=== PATIENT | male | born 1975 | race Caucasian/White ===

== ENCOUNTER 2022-10-11 19:09 | Emergency (ER) | payer SELFPAY ==
[2022-10-11 20:19] VITALS: BP 129/88; PULSE 78; RESP 18; TEMP 37; O2SAT 98; BMI 23.6
[2022-10-11 21:21] VITALS: BP 136/88; PULSE 77; RESP 16; TEMP 36.9; O2SAT 100
--- NOTE | 2022-10-11 21:32 | ED_ITS ---
HPI - Allergic Reaction General: Chief complaint: Allergic Reaction Stated complaint: Aleric Reaction to Antibiatics Time Seen by Provider: 10/11/22 20:51 History of Present Illness: HPI narrative: 47-year-old male patient comes in today with complaints of difficulty swallowing. Patient was diagnosed with a dental infection and dental abscess and was started on amoxicillin. Patient taken 1 dose of amoxicillin this morning this afternoon felt like he had more problems with swallowing. Patient was then brought to the emergency room. Patient was switched from amoxicillin to clindamycin but has not yet to start the clindamycin. Patient reports no chronic medical problems or routine medications. Patient does have very poor dentition. Review of Systems Const: Denies: fever(s) ENMT: Reports: throat pain and dental pain Card: Denies: chest pain Resp: Denies: dyspnea Musc: Reports: neck pain Skin/Breast: Denies: rash Physical Exam Const: COMMON NORMALS: alert HENMT: COMMON NORMALS: Normal external nose present FACE & SINUS: other (Left lower jaw swelling with surrounding redness and induration of the neck) NOSE: Normal external nose present TEETH & GINGIVA: Yes poor dentition and Yes other Neck/C-Spine: COMMON NORMALS: full ROM and no meningeal signs Resp: COMMON NORMALS: normal respiratory effort Cardio: COMMON NORMALS: regular rate RATE: regular rate GI: COMMON NORMALS: Soft to palpation PALPATION: Yes Soft to palpation Extremity: COMMON NORMALS: normal to inspection Neuro: SENSORIUM/ORIENTATION: Yes alert MENINGEAL SIGNS: Yes no meningeal signs Skin: RASHES: rashes noted (Redness and induration to the left jaw and neck) Course Vital Signs: Vital signs: Vital Signs Temperature 98.4 F 10/11/22 21:21 Pulse Rate 77 10/11/22 21:21 Respiratory Rate 18 10/11/22 22:00 Blood Pressure 136/88 10/11/22 21:21 Pulse Oximetry 100 10/11/22 21:21 Oxygen Delivery Me thod 10/11/22 21:21 MDM - Allergic Reaction Medical Decision Making Patient was brought in by law enforcement from the shelter for concerns of difficulty swallowing and pain in the neck. Patient recently been started on amoxicillin and concerned the patient may be having a reaction to the amoxicillin. On exam patient has warmth and swelling to the left lower jaw with apparent dental abscess. Patient does have some redness extending down into the left anterior neck with some induration. Vital signs are normal. Patient is managing secretions well. Differential diagnosis includes but not limited to Jorge's angina, cellulitis, dental abscess, retropharyngeal abscess. CT of the neck noted abscess to the apparent dentition. No signs of retropharyngeal abscess or other significant abnormalities. Patient was treated with 10 mg of dexamethasone IV, and 600 mg of clindamycin. Patient was recommended to continue with antibiotics clindamycin as directed per PCP. Patient was recommended to follow-up with dentist for definitive care. Patient reported understanding agreed to plan. Lab Data 10/11/22 22:04 10/11/22 22:[address] 10/11/22 21:38 IMPRESSION: Subcutaneous soft tissue abscess abutting the skin surface suspected in the left face overlying the mandible measuring 3.9 cm maximum size. Adjacent changes of cellulitis are also present. Multifocal dental disease is seen. Suspect dental origin. Recommend dental consultation. Laboratory Results WBC 10.2 10^3/uL (4.0-10.0) H 10/11/22 22: RBC 4.19 10^6/uL (4.1-5.3) 10/11/22 22:04 Hgb 12.7 g/dL (11.7-16.6) 10/11/22 22:04 Hct 36.3 % (42.0-52.0) L 10/11/22 22:04 MCV 86.6 fl (80-94) 10/11/22 22: MCH 30.3 pg (28.0-34.0) 10/11/22 22: MCHC 35.0 g/dL (30.0-36.0) 10/11/22 22:04 RDW 11.8 % (12.1-15.1) L 10/11/22 22:04 Plt Count 344 10^3/cmm (130-400) 10/11/22 22:04 MPV 9.2 fL (7.4-10.4) 10/11/22 22:04 Neut % (Auto) 68.3 % 10/11/22 22: Lymph % (Auto) 21.4 % 10/11/22 22:04 [place] % (Auto) 9.5 % 10/11/22 22:04 Eos % (Auto) 0.2 % 10/11/22 22:04 Baso % (Auto) 0.3 % 10/11/22 22:04 Neut # (Auto) 6.94 10^3/uL (1.8-7.7) 10/11/22 22:04 Lymph # (Auto) 2.2 10^3/uL (0.8-4.8) 10/11/22 22:04 [place] # (Auto) 1.0 10^3/uL (0.2-0.9) H 10/11/22 22:04 Eos # (Auto) 0.0 10^3/uL (0.0-0.8) 10/11/22 22:04 Baso # (Auto) 0.0 10^3/uL (0.0-0.1) 10/11/22 22:04 Nucleated RBC % (auto) 0 % 10/11/22 22:04 Nucleated RBCs # 0.0 /100WBC 10/11/22 22:04 Discharge Plan Discharge Patient Disposition: Home Clinical Impression: Dental abscess, Cellulitis of face Condition: Stable Discharge Orders: Discharge ED (Routine); Ordered 10/11/22 Ordered By: Lalito Olivier Discharge Diet: Usual diet Discharge Activity: Increase activity as tolerated Patient Instructions: Dental Abscess (ED) Activity Restrictions/Additional Instructions: Encourage plenty of fluids. Continue with clindamycin as directed. Use acetaminophen and ibuprofen for pain. Can use ice and heat for further pain relief. Follow-up with dentist for definitive care. Return to ED for new c oncerns. Coding Level of Care Code ED Pathology Technologist for Nick Payne
--- NOTE | 2022-10-11 21:38 | CTR_ITS ---
PROCEDURE INFORMATION: Exam: CT Neck With Contrast Exam date and time: 10/11/2022 9:50 PM Age: 47 years old Clinical indication: Mass, lump, or swelling in neck; Patient HX: Left mandibular swelling. ; Additional info: Abscess TECHNIQUE: Imaging protocol: Computed tomography of the neck with contrast. Radiation optimization: All CT scans at this facility use at least one of these dose optimization techniques: automated exposure control; mA and/or kV adjustment per patient size (includes targeted exams where dose is matched to clinical indication); or iterative reconstruction. Contrast material: OMNI 350; Contrast volume: 100 ml; Contrast route: INTRAVENOUS (IV); REPORTING DATA: Count of CT and Cardiac NM exams in prior 12 months: This patient has received 0 known CTs and 0 known cardiac nuclear medicine studies in the 12 months prior to the current study. COMPARISON: No relevant prior studies available. RADIATION DOSE METRICS: Total DLP (mGy-cm): 198.41 FINDINGS: Paranasal sinuses: Scattered paranasal sinus mucosal thickening, without air-fluid level present. Dental: Multifocal dental disease is present including a large lucency in the left proximal mandibular body. Pharynx: Bilateral tonsillar pillar calcification likely from chronic inflammation. Larynx: Unremarkable. Epiglottis is normal. Prevertebral and retropharyngeal spaces: Unremarkable. Salivary glands: Normal. Glands are normal in size. Thyroid: Normal. No enlarged or calcified nodules. Lymph nodes: Enlarged lymph nodes in left level 1 and 2 are likely reactive. Index node in the inferior chin for example measures 1.2 cm short axis on series 4, image 63. Trachea: Visualized trachea is unremarkable. Lungs: Mild paraseptal emphysema in the lung apices. Bones/joints: Chronic deformity right lamina papyracea with fat extending into the defect. Chronic appearing fracture of the tip of the coracoid process of the mandible. Old nasal bone fracture. Soft tissues: Subcutaneous soft tissue swelling is seen overlying the left mandible with thickening of the skin. There is a fluid collection with rim enhancement suspicious for an abscess bulging of the skin surface adjacent to the mandible measuring 3.9 x 2.7 by 3.[address]/CT neck w con* [id number] IMPRESSION: Subcutaneous soft tissue abscess abutting the skin surface suspected in the left face overlying the mandible measuring 3.9 cm maximum size. Adjacent changes of cellulitis are also present. Multifocal dental disease is seen. Suspect dental origin. Recommend dental consultation.
[2022-10-11] MEDS: iohexol 350 mg/mL 500 mL Btl (per mL) IV (21:59)
[2022-10-11 22:00] VITALS: RESP 18
[2022-10-11] MEDS: clindamycin 600 MG/50 ML PREMIX 100 MG IV (22:21)
[2022-10-11] MEDS: ketorolac 30 mg/mL INJ 15 MG IVP (22:21)
[2022-10-11] MEDS: dexamethasone 10 mg/mL INJ IVP (22:21)
[2022-10-11 22:38] LABS: Basophils % 0.3 %; Eosinophils % 0.2 %; Hematocrit 36.3 % (42.0-52.0); Hemoglobin 12.7 g/dL (11.7-16.6); Lymphocytes # 2.2 10^3/uL (0.8-4.8); Lymphocytes % 21.4 %; Mean Corpuscular Hemoglobin 30.3 pg (28.0-34.0); Mean Corpuscular Volume 86.6 fl (80-94); Mean Platelet Volume 9.2 fL (7.4-10.4); Monocytes % 9.5 %; Neutrophils # 6.94 10^3/uL (1.8-7.7); Neutrophils % 68.3 %; Nucleated Red Blood Cells % 0 %; Platelet Count 344 10^3/cmm (130-400); Red Blood Count 4.19 10^6/uL (4.1-5.3); Red Cell Distribution Width 11.8 % (12.1-15.1); White Blood Count 10.2 10^3/uL (4.0-10.0)
[2022-10-11 23:00] VITALS: BP 140/82; PULSE 73; RESP 18; TEMP 37.3; O2SAT 100
[2022-10-11 23:07] VITALS: BP 140/82; PULSE 73; RESP 18
[2022-10-11 23:10] LABS: Alanine Aminotransferase 11 U/L (0-41); Albumin Level 3.8 g/dL (3.5-5.2); Alkaline Phosphatase 49 U/L (40-130); Anion Gap 15.7 (5-19); Aspartate Amino Transferase 12 U/L (0-40); Blood Urea Nitrogen 8 mg/dL (6-20); Calcium 8.7 mg/dL (8.5-10.5); Carbon Dioxide 27 mmol/L (22-29); Chloride 96 mmol/L (98-107); Creatinine Clr Calc Pharmacy 101.4414; Globulin 2.9 g/dL (1.3-4.6); Glomerular Filtration Rate 90.1 mL/min (90-130); Glucose 94 mg/dL (65-115); Osmolality Calculated 278 mOsm/kg (285-295); Potassium 3.7 mmol/L (3.5-5.1); Sodium 135 mmol/L (136-145); Total Bilirubin 0.3 mg/dL (0.15-1.2); Total Protein 6.7 g/dL (6.6-8.7)
--- NOTE | 2022-10-17 13:53 | DCPLANNER ---
Addendum entered by Yovana Salgado 10/17/22 13:54: pillowcase sewer tried to call patients aunt due to patient not having a primary care physician - no answer at this time Original Note: 10.15.22 - patient was called due to no primary care physician - wrong number in chart - called aunt no answer at this time
== END 2022-10-11 23:08 | disposition home or self-care (01) ==
PROVIDERS: Emergency Provider Nurse Practitioner Family
DX: L03.211 Cellulitis of face (principal); K04.7 Periapical abscess without sinus
CPT/HCPCS: 70491; 80053; 83605; 85025; 87040; 96365; 96375; 99285; J1100; J1885; J3490; Q9967

== ENCOUNTER 2025-06-15 19:46 | Emergency (ER) | payer SELFPAY ==
[2025-06-15 19:48] VITALS: BP 117/77; PULSE 70; RESP 18; TEMP 36.4; O2SAT 91; BMI 25.1
--- OUTSIDE RECORDS SUMMARY | 2025-06-15 19:54 | XMS_ITS | Encounter Summary ---
Author Organization [facility] Address [address] [place] [address] Care Team Providers Care Injection Press Operator Name Role Phone Raymundo Ingram MD Primary Care Provider [phone] Encounter Details Date Type Department Care Team (Latest Contact Info) Description 01/01/2003 Outpatient Historical [facility] Medicine [place] [address] [place] [phone] Dony Goel, SHOE MAKER [address] [place] [address] OTHER MALAISE AND FATIGUE (Primary Dx) Social History Tobacco Use Types Packs/Day Years Used Date Smoking Tobacco: Never Assessed Sex and Gender Information Value Date Recorded Sex Assigned at Not on file 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
--- OUTSIDE RECORDS SUMMARY | 2025-06-15 19:54 | XMS_ITS | Clinical Summary ---
Author Organization [facility] Address [address] [place] [phone] Care Team Providers Care Engineering Professor Name Role Phone Raymundo Ingram MD Primary Care Provider [phone] Allergies No known active allergies Medications cyclobenzaprine (FLEXERIL) 10 mg tablet Take 1 Tablet (10 mg) by mouth 3 times daily as needed for Spasm. 42 Tablet 1 02/18/2016 Active Active Problems Problem Noted Date Diagnosed Date Abdominal pain of unknown etiology 08/21/2014 Rash of face with scaling an d redness, extending up into scalp 08/21/2014 Tobacco dependence 08/21/2014 History of constipation 08/21/2014 Family History Relation Name Status Comments Father Alive Mother Alive Social History Tobacco Use Types Packs/Day Years Used Date Smoking Tobacco: Every Day Cigarettes Smokeless Tobacco: Never Tobacco Cessation:Ready to Q uit: No; Counseling Given: No Alcohol Use Standard Drinks/Week Comments No 0 (1 standard drink = 0.6 oz pur e alcohol) Sex and Gender Information Value Date Recorded Sex Assigned at Not on file 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 Gender Identity Not on file Sexual Orientation Not on file Last Filed Vital Signs Vital Sign Reading Time Taken Comments Blood Pressure 98/60 02/18/2016 1:27 PM CDT Pulse 72 02/18/2016 1:27 PM CDT Temperature 35.9 C (96.6 F) 02/18/2016 1:27 PM CDT Respiratory Rate 16 02/18/2016 1:27 PM CDT Oxygen Saturation 96% 02/18/2016 1:27 PM CDT Inhaled Oxygen Concentration - - Weight 80.5 kg (177 lb 6.4 oz) 02/18/2016 1:27 P M CDT Height 175.3 cm (5' 9 ) 02/18/2016 1:27 PM CDT Body Mass Index 26.2 02/18/2016 1:27 PM CDT Plan of Treatment Health Maintenance Due Date Last Done Comments DTAP/TDAP/TD VACCINES (1 - Tdap) 1993 HEPATITIS B VACCINES (1 of 3 - 19+ 3-dose series) 06/08 Preventative Visit-Managed Medicaid 1993 COLORECTAL SCREENING 2019 Colorectal Cancer Screening 2019 FIT-DNA Q 3 years 2019 FIT/FOBT Q 1 year 2019 Flex Sig/CT Colonography Q 5 years 2019 ZOSTER VACCINE (1 of 2) 2024 INFLUENZA VACCINE (#1) 2025 Insurance MEDICAID [place] Care Teams Engineering Professor Relationship Specialty Start Date End Date Raymundo Ingram MD [address] [place] [address] PCP - General Family Practice 02/11/16
--- OUTSIDE RECORDS SUMMARY | 2025-06-15 19:54 | XMS_ITS | Encounter Summary ---
Author Organization [facility] Address [address] [place] [address] Care Team Providers Care Joinery Factory Worker Name Role Phone Raymundo Ingram MD Primary Care Provider [phone] Encounter Details Date Type Department Care Team (Latest Contact Info) Description 01/01/2003 Outpatient Historical [facility] [address], [place] [phone] Chivo Kong MD [address] [place] [address] NONSPECIF SKIN ERUPT NEC (Primary Dx); DERMATITIS NOS; OTHER MALAISE AND FATIGUE Social History Tobacco Use Types Packs/Day Years Used Date Smoking Tobacco: Never Assessed Sex and Gender Information Value Date Recorded Sex Assigned at Not on file 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
--- OUTSIDE RECORDS SUMMARY | 2025-06-15 19:54 | XMS_ITS | Clinical Summary ---
Author Organization [facility] Address [address] [place]: Epic Prelude ADT [place] [phone] Care Team Providers Care Pineapple Plantation Manager Name Role Phone Raymundo Ingram MD Primary Care Provider [phone] Allergies No known active allergies Medications cyclobenzaprine (FLEXERIL) 10 mg tablet Take 1 Tablet (10 mg) by mouth 3 times daily as needed for Spasm. 42 Tablet 1 02/18/2016 Active Active Problems Problem Noted Date Diagnosed Date Rash of face with scaling an d redness, extending up into scalp 08/21/2014 Abdominal pain of unknown etiology 08/21/2014 History of constipation 08/21/2014 Tobacco dependence 08/21/2014 Family History Relation Name Status Comments Father Alive Mother Alive Social History Tobacco Use Types Packs/Day Years Used Date Smoking Tobacco: Every Day Cigarettes Smokeless Tobacco: Never Alcohol Use Standard Drinks/Week Comments No 0 (1 standard drink = 0.6 oz pur e alcohol) Sex and Gender Information Value Date Recorded Sex Assigned at Not on file 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 Gender Identity Not on file Sexual Orientation Not on file Last Filed Vital Signs Vital Sign Reading Time Taken Comments Blood Pressure 98/60 02/18/2016 1:27 PM CDT Pulse 72 02/18/2016 1:27 PM CDT Temperature 35.9 C (96.6 F) 02/18/2016 1:27 PM CDT Respiratory Rate 16 02/18/2016 1:27 PM CDT Oxygen Saturation - - Inhaled Oxygen Concentration - - Weight 80.5 kg (177 lb 6.4 oz) 02/18/2016 1:27 P M CDT Height 175.3 cm (5' 9 ) 02/18/2016 1:27 PM CDT Body Mass Index 26.2 02/18/2016 1:27 PM CDT Plan of Treatment Health Maintenance Due Date Last Done Comments DTAP/TDAP/TD VACCINES (1 - Tdap) 1993 HEPATITIS B VACCINES (1 of 3 - 19+ 3-dose series) 06/08 COLORECTAL SCREENING 2019 Colorectal Cancer Screening 2019 FIT-DNA Q 3 years 2019 FIT/FOBT Q 1 year 2019 Flex Sig/CT Colonography Q 5 years 2019 ZOSTER VACCINE (1 of 2) 2024 INFLUENZA VACCINE (#1) 2025 Care Teams Pineapple Plantation Manager Relationship Specialty Start Date End Date Raymundo Ingram MD [address] [address] PCP - General Family Practice 02/11/16
--- NOTE | 2025-06-15 20:17 | ED_ITS ---
HPI - Abdominal Pain 2 General: Chief Complaint: Abdominal Pain Stated Complaint: Rt Side ABD Pain Time Seen by Provider: 06/15/25 20:14 Source: patient Mode of arrival: ambulatory Limitations: no limitations History of Present Illness: 49-year-old male states been having righ t lower quadrant abdominal pain for the last 5 to 6 days. States been a sharp pain that seems to come and go states pain is currently 3 out of 10. He states he notes it is worse when his dog's been laying on his abdomen. Denies any fever denies any dysuria denies any testicle pain. No previous surgeries Related Data Allergies Allergy/AdvReac Type Severity Reaction Status Date / Time No Known Allergies Allergy Verified 06/15/25 19:57 Review of Systems 2 GI: Reports: abdominal pain Physical Exam 2 Const: COMMON NORMALS: no acute distress, patient oriented x3 and healthy appearing HENMT: COMMON NORMALS: normocephalic and atraumatic HEAD & SCALP: n ormocephalic and atraumatic Neck/C-Spine: COMMON NORMALS: full ROM and supple Chest: COMMONS NORMALS: normal inspection of the chest Resp: COMMON NORMALS: normal respiratory effort Cardio: COMMON NORMALS: regular rate RATE: regular rate GI: COMMON NORMALS: Normal to inspection, nondistended, normoactive bowel sounds present, Soft to palpation and no masses PALPATION: Yes Soft to palpation and Yes Tenderness to palpation present (GI) Details: RLQ Extremity: COMMON NORMALS: normal to inspection and full ROM Neuro: COMMON NORMALS: patient oriented x3, moves all extremities and no focal motor deficits Psych: COMMON NORMALS: mental status grossly normal, Normal thought process present and cooperative THOUGHT PROCESS: Normal thought process present Skin: COMMON NORMALS: no rashes or lesions noted and no wounds GENERAL SKIN EXAM: no rashes or lesions noted Course 2 Vital Signs: Vital signs: Vital Signs Temperature 97.6 F 06/15/25 19:48 Pulse Rate 62 06/15/25 20:44 Respiratory Rate 16 06/15/25 20:44 Blood Pressure 124/79 06/15/25 20:44 Pulse Oximetry 96 06/15/25 20:44 Oxygen Delivery Me thod Room Air 06/15/25 20:44 MDM - Abdominal Pain Medical Decision Making Patient presents here with abdominal pain going on for roughly a week. Patient's differential includes acute appendicitis, constipation, diverticulitis. Patient's labs reviewed and are normal with normal white count and electrolytes. Patient CT showed no acute findings did inform him of the 6 mm nodule shown at the right lung base and recommended follow-up. Patient's repeat exam at discharge is benign with no tenderness. I did go over his labs and CT findings with him recommend follow-up with his PCP and return if worsening he understands agrees to plan. Medical Records I reviewed the patient's medical records. Lab Data I reviewed the patient's lab results. 06/15/25 20:23 06/15/25 20:23 Labs/Radiology: Radiology Impressions Abdomen/Pelvis CT 06/15/25 20:17 IMPRESSION: 1. 6 mm nodule at the right lung base, consider follow-up CT at 6-12 months then at 18-24 months to ensure stability by Fleischner society guidelines. 2. Colonic diverticulosis predominantly sigmoid without definite significant acute inflammatory changes. No definite acute findings. Laboratory Results WBC 8.55 10^3/uL (3.29-11.43) 06/15/25 20: RBC 4.93 10^6/uL (3.85-5.65) 06/15/25 20:23 Hgb 14.70 g/dL (11.27-16.99) 06/15/25 20: Hct 41.8 % (37-53) 06/15/25 20: MCV 84.8 fl (82-101) 06/15/25 20:23 MCH 29.8 pg (27-33) 06/15/25 20: MCHC 35.2 g/dL (30-55) 06/15/25 20: RDW 12.5 % (12.1-15.1) 06/15/25 20:23 Plt Count 257 10^3/cmm (157-399) 06/15/25 20: MPV 9.7 fL (7.4-10.4) 06/15/25 20: Neut % (Auto) 51.0 % 06/15/25 20: Lymph % (Auto) 40.4 % 06/15/25 20:23 [place] % (Auto) 6.5 % 06/15/25 20: Eos % (Auto) 1.6 % 06/15/25 20: Baso % (Auto) 0.4 % 06/15/25 20: Neut # (Auto) 4.36 10^3/uL (1.8-7.7) 06/15/25 20: Lymph # (Auto) 3.5 10^3/uL (0.8-4.8) 06/15/25 20: [place] # (Auto) 0.6 10^3/uL (0.2-0.9) 06/15/25: Eos # (Auto) 0.1 10^3/uL (0.0-0.8) 06/15/25 20: Baso # (Auto) 0.0 10^3/uL (0.0-0.1) 06/15/25: Nucleated RBC % (auto) 0 % 06/15/25: Nucleated RBCs # 0.0 /100WBC 06/15/25 20: Sodium 142 mmol/L (136-145) 06/15/25 20: Potassium 4.0 mmol/L (3.5-5.1) 06/15/25 20: Chloride 105 mmol/L (98-107) 06/15/25 20: Carbon Dioxide 26 mmol/L (22-29) 06/15/25 20: Anion Gap 15.0 (5-19) 06/15/25 20: BUN 10 mg/dL (6-20) 06/15/25 20: Creatinine 0.9 mg/dL (0.7-1.2) 06/15/25 20: GFR Calculation 89.3 mL/min (90-130) L 06/15/25 20: Glucose 122 mg/dL (65-115) H 06/15/25 20: Calculated Osmolality 294 mOsm/kg (285-295) 06/15/25 20: Calcium 9.3 mg/dL (8.5-10.5) 06/15/25 20: Total Bilirubin 0.2 mg/dL (0.15-1.2) 06/15/25 20:23 AST 18 U/L (0-40) 06/15/25 20: ALT 14 U/L (0-41) 06/15/25 20: Alkaline Phosphatase 64 U/L (40-130) 06/15/25 20:23 Total Protein 6.6 g/dL (6.6-8.7) 06/15/25 20:23 Albumin 4.6 g/dL (3.5-5.2) 06/15/25 20:23 Globulin 2.0 g/dL (1.3-4.6) 06/15/25 20:23 Lipase 32 U/L (13-60) 06/15/25 20:23 All radiology interpretation(s) finalized by discharge Discharge Plan Discharge Patient Disposition: Home Clinical Impression: Abdominal pain Condition: Stable Discharge Orders: Discharge ED (Routine); Ordered 06/15/25 Ordered By: Phillip Clarke Discharge Diet: Advance as tolerated Discharge Activity: Resume usual activity Patient Instructions: Abdominal Pain (ED) Print Language: Spanish Coding Level of Care Code ED Customer Service Consultant for Nick Payne
--- NOTE | 2025-06-15 20:17 | CTR_ITS ---
PROCEDURE INFORMATION: Exam: CT Abdomen And Pelvis With Contrast Exam date and time: 06/15/2025 8:57 PM Age: 49 years old Clinical indication: Abdominal pain; Additional info: Abd pain TECHNIQUE: Imaging protocol: Computed tomography of the abdomen and pelvis with contrast. Radiation optimization: All CT scans at this facility use at least one of these dose optimization techniques: automated exposure control; mA and/or kV adjustment per patient size (includes targeted exams where dose is matched to clinical indication); or iterative reconstruction. Contrast material: OMNI 350; Contrast volume: 100 ml; Contrast route: INTRAVENOUS (IV); COMPARISON: No relevant prior studies available. RADIATION DOSE METRICS: Total DLP (mGy-cm): 436.33 FINDINGS: Lungs: 6 mm nodule at the right lung base, consider follow-up CT at 6-12 months then at 18-24 months to ensure stability by Fleischner society guidelines. Liver: Normal. No mass. Gallbladder and biliary ducts: Normal. No calcified stones. No ductal dilation. Pancreas: Normal. No ductal dilation. Spleen: Normal. No splenomegaly. Adrenal glands: Normal. No mass. Kidneys and ureters: Normal. No hydronephrosis. Stomach and bowel: Colonic diverticulosis predominantly sigmoid without definite significant acute inflammatory changes. Appendix: No evidence of appendicitis. Intraperitoneal space: Unremarkable. No free air. No significant fluid collection. Vasculature: Aortic atherosclerosis. Lymph nodes: Unremarkable. No enlarged lymph nodes. Urinary bladder: Unremarkable as visualized. Reproductive: Unremarkable as visualized. Bones/joints: Unremarkable. No acute fracture. Soft tissues: Unremarkable. CT/CT abdomen pelvis w con* [id number] IMPRESSION: 1. 6 mm nodule at the right lung base, consider follow-up CT at 6-12 months then at 18-24 months to ensure stability by Fleischner society guidelines. 2. Colonic diverticulosis predominantly sigmoid without definite significant acute inflammatory changes. No definite acute findings.
[2025-06-15 20:33] LABS: Hematocrit 41.8 % (37-53); Hemoglobin 14.70 g/dL (11.27-16.99); Mean Corpuscular HGB Conc 35.2 g/dL (30-55); Mean Corpuscular Hemoglobin 29.8 pg (27-33); Mean Corpuscular Volume 84.8 fl (82-101); Nucleated Red Blood Cells % 0 %; Platelet Count 257 10^3/cmm (157-399); Red Blood Count 4.93 10^6/uL (3.85-5.65); White Blood Count 8.55 10^3/uL (3.29-11.43)
[2025-06-15 20:44] VITALS: BP 124/79; PULSE 62; RESP 16; O2SAT 96
[2025-06-15 20:54] LABS: Alanine Aminotransferase 14 U/L (0-41); Albumin Level 4.6 g/dL (3.5-5.2); Alkaline Phosphatase 64 U/L (40-130); Anion Gap 15.0 (5-19); Aspartate Amino Transferase 18 U/L (0-40); Blood Urea Nitrogen 10 mg/dL (6-20); Calcium 9.3 mg/dL (8.5-10.5); Carbon Dioxide 26 mmol/L (22-29); Chloride 105 mmol/L (98-107); Creatinine Clr Calc Pharmacy 101.7561; Globulin 2.0 g/dL (1.3-4.6); Glucose 122 mg/dL (65-115); Lipase 32 U/L (13-60); Osmolality Calculated 294 mOsm/kg (285-295); Potassium 4.0 mmol/L (3.5-5.1); Sodium 142 mmol/L (136-145); Total Protein 6.6 g/dL (6.6-8.7)
[2025-06-15] MEDS: iohexol 350 mg/mL 500 mL Btl (per mL) IV (21:01)
== END 2025-06-15 21:31 | disposition home or self-care (01) ==
PROVIDERS: Emergency Provider Emergency Medicine
DX: R10.31 Right lower quadrant pain (principal)
CPT/HCPCS: 36415; 74177; 80053; 83690; 85025; 99285